=== PATIENT | female | born 1955 | race Caucasian/White ===

== ENCOUNTER → 2020-03-28 | Outpatient (CLI) | payer OTHER ==
[~2020-03-28] MED LIST: ASPIR 8181 MG PO; ATENOLOL25 MG PO; ATORVASTATIN CA20 MG PO; CLOPIDOGREL75 MG PO; IRBESARTAN150 MG PO; ISOSORBIDE MONO30 MG PO; NITROGLYCERIN0.4 MG SL; PRIMIDONE1 GM PO; PROAIR HFA INH8.5 GM INH
--- NOTE | 2020-03-28 12:44 | Diagnostic Imaging Report ---
TECHNIQUE: Magnetic resonance imaging of the RIGHT ANKLE was performed WITHOUT injected contrast. COMPARISON: None available. HISTORY: Right ankle pain, fall FINDINGS: LIGAMENTS: Medial Complex: Deltoid intact. Lateral Complex: Tibiofibular ligaments intact. High-grade tear of the insertion of the ATFL with cortical avulsion of the talus. The CFL ligament is poorly visualized. TENDONS: Medial: Posterior tibial and flexor tendons intact. Lateral: Peroneal tendons intact. Anterior: Anterior tibial and extensor tendons intact. Achilles: Achilles tendon intact. BONES: Osseous contusion of the medial malleolus and talus. No acute fracture or osteonecrosis. JOINTS: Cartilage: Osteochondral lesion of the lateral tibial plafond without defect. Other: Ankle joint effusion. SOFT TISSUES: Otherwise, unremarkable. IMPRESSION: Ankle inversion injury with high-grade tear of the insertion of the ATFL with cortical avulsion of the talus. Medial malleolus and medial talus contusion. Subchondral lesion of the medial talar dome. No unstable fragment. Signed by: Dr. Qamar Stockton M.D. on 03/28/2020 12:41 PM
== END ==
LOC: MRI 10:48
PROVIDERS: ATTEND Podiatrist Foot & Ankle Surgery
DX: S93.431S Sprain of tibiofibular ligament of right ankle, sequela (principal)

== ENCOUNTER → 2020-04-05 | Day surgery (SDC) | payer OTHER ==
[2020-04-01 12:22] LABS: BASOPHILS # (AUTO) 0.1 (0.0-0.1); BASOPHILS % 0.5 % (0.0-1.0); EOSINOPHILS # (AUTO) 0.5 (0.0-0.4); EOSINOPHILS % 4.9 % (0.0-6.0); HEMATOCRIT 38.3 % (34.2-44.1); HEMOGLOBIN 11.9 g/dL (12.0-16.0); LYMPHOCYTES # (AUTO) 1.8 (1.0-3.2); LYMPHOCYTES % 18.3 % (18.0-39.1); MEAN CORPUSCULAR HEMOGLOBIN 28.1 pg (28-32); MEAN CORPUSCULAR HGB CONC 31.1 g/dL (31-35); MEAN CORPUSCULAR VOLUME 90.3 fL (81-99); MONOCYTES # (AUTO) 0.6 (0.2-0.8); NEUTROPHILS # (AUTO) 6.9 (2.1-6.9); NEUTROPHILS % 69.7 % (38.7-80.0); PLATELET COUNT 336 x10e3/uL (140-360); RED BLOOD COUNT 4.24 x10e6/uL (3.6-5.1); RED CELL DISTRIBUTION WIDTH 13.9 % (11.7-14.4)
[2020-04-01 12:52] LABS: ANION GAP 13.5 mmol/L (8-16); BLOOD UREA NITROGEN 11 mg/dL (7-26); BUN/CREATININE RATIO 13 (6-25); CALCIUM 9.7 mg/dL (8.4-10.2); CARBON DIOXIDE 22 mmol/L (22-29); CHLORIDE 107 mmol/L (98-107); CREATININE, SERUM 0.87 mg/dL (0.57-1.11); EST GLOMERULAR FILTRATION RATE > 60 ML/MIN (60-); GLUCOSE 152 mg/dL (74-118); POTASSIUM 4.5 mmol/L (3.5-5.1); SODIUM 138 mmol/L (136-145)
--- NOTE | 2020-04-01 14:13 | Diagnostic Imaging Report ---
X-ray chest PA and lateral Comparison: None History: Preop Findings: Central airways unremarkable. Cardiomediastinal silhouettes unremarkable. No pleural effusion. No pneumothorax. Unremarkable lung galvan. Visualized skeletal structures and upper abdomen unremarkable. Impression: No significant cardiopulmonary disease. Signed by: Onesimo Gant MD on 04/01/2020 2:10 PM
[~2020-04-05] MED LIST changes: +ACETAMINOPHEN 1000 MG/100 ML 100 ML IV ONE; +BUPIVACAINE HCL 0.5% INJ 30 ML VIAL INJ ONE; +CEFAZOLIN SOD 1 GM/NS 50ML 50 ML IV ONE; +CYCLOBENZAPRINE5 MG PO; +DEXAMETHASONE SOD PHOS 10 MG/1 ML VIAL ONE; +DEXAMETHASONE SOD PHOS INJ 4 MG/ML VIAL ONE; +FENTANYL CITRATE/PF 100MCG/2 ML INJ ONE; +KETOROLAC TROMETHAMINE 30 MG/ML VIAL ONE; +LIDOCAINE HCL 2% LOCAL INJ 5 ML SDV VIAL INJ ONE; +MIDAZOLAM HCL 2 MG/2 ML VIAL ONE; +ONDANSETRON HCL INJ 2MG/ML 2ML 2 MG/ML VIAL ONE; +PROPOFOL IV EMULSION 10 MG/ML 20 ML VIAL ONE; +SEVOFLURANE INHAL SOLN 250 ML PEN BTL ONE; +TYLENOL WITH C1 EACH PO
--- NOTE | 2020-04-05 08:27 | Operative Report ---
DATE OF PROCEDURE: 04/05/2020 SURGEON: Andrew Zuniga DPM PREOPERATIVE DIAGNOSIS: Right calcaneofibular ligament rupture, right anterior talofibular ligament rupture, right talar dome lesion. POSTOPERATIVE DIAGNOSES: Right calcaneofibular ligament rupture, right anterior talofibular ligament rupture, right talar dome lesion. PROCEDURES: 1. Lateral ankle ligament reconstruction with Brostrom procedure. 2. Repair of osteochondral defect, right. SURGEON: Asia Lofton DPM (Charley) JAVA ENGINEER: Andrew Zuniga DPM. ANESTHESIA: General with a postoperative block consisting of 15 mL 0.5% Marcaine plain mixed with 1 mL of dexamethasone phosphate. HEMOSTASIS: Pneumatic thigh tourniquet set at 350 mmHg for a total time of approximately 35 minutes. MATERIALS: One G2 Mitek bone anchor, 0 Ethibond, 3-0 Vicryl, 4-0 nylon. ESTIMATED BLOOD LOSS: Less than 10 mL. PATHOLOGY: None. PROCEDURE NOTE: The patient was seen in the preoperative waiting room. The correct procedure and site were identified. The patient was brought to the operating room and placed on the operating table in the supine position. General anesthesia was initiated. At this time, a well-padded pneumatic tourniquet was placed about the patient's right thigh. The right foot, ankle, and leg were scrubbed, prepped, and draped in the usual aseptic manner. The right foot, ankle, and leg was exsanguinated with an Esmarch bandage and the pneumatic thigh tourniquet was inflated to 350 mmHg for a total time of approximately 35 minutes. Attention was directed to the anterior lateral aspect of the patient's right ankle where a J type incision was performed starting at the anterior aspect of the distal fibula and wrapping inferiorly around the inferior aspect of the fibula. The incision was carried through subcutaneous tissue them from deep underlying structures. All vital and neurovascular structures were identified, retracted medially and laterally and all bleeders were cauterized or ligated as deemed necessary. The dissection was carried through the level to the ankle joint capsule, where there was noted to be attenuation of the anterior talofibular ligament. The calcaneofibular ligament as well appeared to be attenuated. A GI incision was made over the lateral aspect of the patient's anterior ankle capsule where a large hankins of dried hematoma formation was present. Upon exploration of the lateral aspect of talar dome a superficial osteochondral defect was noted to the anterolateral aspect of the talar dome. Utilizing a 0.045 K-wire, a subchondral drilling was performed. The wound was then copiously irrigated with sterile saline. Next, utilizing a G2 bone anchor per manufacture protocol was placed to the distal aspect of the fibula and confirmed via intraoperative fluoroscopy. Utilizing the sutures, the anterior talofibular ligament along with the ankle joint capsule was reapproximated to anatomic alignment. This was then further reinforced with a Brostrom-Newberry modification with ehery-iwdy-havy sutures with 0 Ethibond. The wound was then copiously irrigated with sterile saline. The subcutaneous tissue was reapproximated with simple interrupted sutures with 3-0 Vicryl, and the skin was reapproximated with simple interrupted sutures with 4-0 nylon. The incision site was then dressed with Adaptic, 4x4s, Kerlix followed by an application of a posterior splint with a 4-inch Duong wrap, and a 6-inch Duong wrap. The patient tolerated the procedure and anesthesia well. The patient was transferred to the postoperative recovery room with vital signs stable and vascular status intact. The patient was monitored there for a short period of time before being sent home with the final written and oral instructions. 1. Keep the dressing clean, dry, intact. 2. The patient is to remain nonweightbearing to the right lower extremity to avoid any ambulation until being seen in the office. 3. The patient was given the office number and instructed to contact us if any problems arise. LANEY Banuelos/SAMIR /[id number]
[2020-04-05 08:40] VITALS: BP 128/79
== END | disposition home or self-care (01) ==
LOC: OR 05:03
PROVIDERS: ATTEND Podiatrist Foot & Ankle Surgery
DX: S93.491A Sprain of other ligament of right ankle, initial encounter (principal); S93.411A Sprain of calcaneofibular ligament of right ankle, initial encounter; M93.271 Osteochondritis dissecans, right ankle and joints of right foot; G47.33 Obstructive sleep apnea (adult) (pediatric); J45.909 Unspecified asthma, uncomplicated; R73.03 Prediabetes; I25.10 Atherosclerotic heart disease of native coronary artery without angina pectoris; I25.2 Old myocardial infarction; X58.XXXA Exposure to other specified factors, initial encounter; Z01.812 Encounter for preprocedural laboratory examination; Z01.818 Encounter for other preprocedural examination; Z11.59 Encounter for screening for other viral diseases; Z88.8 Allergy status to other drugs, medicaments and biological substances; Z79.02 Long term (current) use of antithrombotics/antiplatelets; Z79.82 Long term (current) use of aspirin; Z86.73 Personal history of transient ischemic attack (TIA), and cerebral infarction without residual deficits; Z95.5 Presence of coronary angioplasty implant and graft
CPT/HCPCS: 27695; 28446; 36415; 71046; 80048; 85025; J0131; J0690; J1100 ×2; J1885; J2001; J2250; J2405; J2704; J3010; U0002; C1713

== ENCOUNTER 2020-05-04 13:46 | Emergency (ER) | payer OTHER ==
[~2020-05-04] VITALS: Ht 167.6 cm; Wt 113.4 kg
[~2020-05-04 13:46] MED LIST changes: -ACETAMINOPHEN 1000 MG/100 ML 100 ML IV ONE; -BUPIVACAINE HCL 0.5% INJ 30 ML VIAL INJ ONE; -CEFAZOLIN SOD 1 GM/NS 50ML 50 ML IV ONE; -CYCLOBENZAPRINE5 MG PO; -DEXAMETHASONE SOD PHOS 10 MG/1 ML VIAL ONE; -DEXAMETHASONE SOD PHOS INJ 4 MG/ML VIAL ONE; -FENTANYL CITRATE/PF 100MCG/2 ML INJ ONE; -KETOROLAC TROMETHAMINE 30 MG/ML VIAL ONE; -LIDOCAINE HCL 2% LOCAL INJ 5 ML SDV VIAL INJ ONE; -MIDAZOLAM HCL 2 MG/2 ML VIAL ONE; -ONDANSETRON HCL INJ 2MG/ML 2ML 2 MG/ML VIAL ONE; -PROPOFOL IV EMULSION 10 MG/ML 20 ML VIAL ONE; -SEVOFLURANE INHAL SOLN 250 ML PEN BTL ONE; -TYLENOL WITH C1 EACH PO
[2020-05-04] MEDS ORDERED: MORPHINE SULFATE 5 MG/ML VIAL IM ONE (14:15)
[2020-05-04] MEDS ORDERED: MORPHINE SULFATE INJ 4 MG/ML INJ 1ML IM ONE (14:21)
[2020-05-04] MEDS ORDERED: MORPHINE SULFATE INJ 4 MG/ML INJ 1ML ONE (14:23)
--- NOTE | 2020-05-04 15:28 | Diagnostic Imaging Report ---
EXAMINATION: HAND 3 VIEW RT - [facility], FOREARM 2 VIEW RT - [facility] INDICATION: Fall COMPARISON: None FINDINGS: No acute fracture or dislocation. Alignment is anatomic. The soft tissues appear unremarkable. Moderate degenerative changes of the first CMC joint with joint space narrowing and osteophyte formation. IMPRESSION: No acute osseous injury. Moderate first CMC joint degenerative changes. Signed by: Tyrone Maxwell MD on 05/04/2020 3:25 PM
--- NOTE | 2020-05-04 15:35 | Diagnostic Imaging Report ---
EXAMINATION: TIB/FIB 2VW RT - [facility], FOOT 2VIEW RT - [facility] INDICATION: Fall COMPARISON: None FINDINGS: Right tibia/fibula: No acute fracture or dislocation. Alignment is anatomic. No ankle joint effusion. Soft tissues appear unremarkable. No knee joint effusion. Right foot: No acute fracture or dislocation. Metallic anchor at the distal fibula from prior surgical repair. Alignment is anatomic. Small plantar calcaneal spur. Soft tissues appear unremarkable. IMPRESSION: No acute osseous injury of the right tibia/fibula or right foot. Signed by: Tyrone Maxwell MD on 05/04/2020 3:31 PM
--- NOTE | 2020-05-04 15:37 | Diagnostic Imaging Report ---
EXAMINATION: L SPINE 4 OR MORE VIEWS - [facility] INDICATION: Fall COMPARISON: None FINDINGS: AP, lateral and oblique images of the lumbar spine demonstrate fracture. Vertebral body heights are well-maintained. Alignment is anatomic. Minimal degenerative changes with small multilevel osteophyte formation. Oblique images demonstrate no evidence of spondylolysis. Status post cholecystectomy. IMPRESSION: No acute osseous injury of the lumbar spine. Minimal multilevel degenerative changes. Signed by: Tyrone aMxwell MD on 05/04/2020 3:34 PM
--- NOTE | 2020-05-04 15:45 | Emergency Department Note ---
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 SHE HAS TENDON REPAIR ON RIGHT ANKLE 4 WEEKS AGO AND IS USING CRUTCHES. AT APPROX 1130 SHE WENT TO BATHROOM WITH CRUTCHES, TRIP AND FELL OVER THE TOILET AND INTO THE SHOWER. PT. C/O PAIN TO LOWER BACK, RIGHT FOREARM AND RIGHT KNEE . Historian: Patient, Significant Other Arrival Mode: Car Onset (how long ago): day(s) (1) Location: BACK/LEG/ARM Radiation: Denies non-radiation, Denies back, Denies neck, Denies extremity, Denies abdomen, Denies periumbilical, Denies flank, Denies proximal, Denies distal, Denies other Severity: moderate Onset quality: sudden Duration (how long): day(s) (1) Timing of current episode: constant Progression: worsening Chronicity: new Context: Denies recent illness, Denies recent surgery, Denies recent immobilization, Denies recent travel, Denies trauma/injury, Denies new medications, Denies hx of DVT/PE, Denies non-compliance w/ medications, Denies other Relieving factors: none Exacerbating factors: none Associated symptoms: Reports denies other symptoms Past Medical/Family History Physician Review I have reviewed the patient's past medical and family history. Any updates have been documented here. Past Medical History Recent Fever: No Clinical Suspicion of Infectio: No New/Unexplained Change in Ment: No Past Medical History: Hypertension, ND, CVA, Asthma, Hyperlipedemia Past Surgical History: Hysterectomy Other Surgery: RIGHT KNEE SCOPE CARDIAC STENT RIGHT ANKLE TENDON REPAIR Social History Smoking Cessation: Never Smoker Alcohol Use: None Any Illegal Drug Use: No Physically hurt or threatened: No Other Any Pre-Existing Lines (PICC,: No Review of Systems Review of Systems Constitutional: Reports no symptoms EENTM: Reports no symptoms Cardiovascular: Reports no symptoms Respiratory: Reports no symptoms Gastrointestinal: Reports no symptoms Genitourinary: Reports no symptoms Musculoskeletal: Reports as per HPI Integumentary: Reports no symptoms Neurological: Reports no symptoms Psychological: Reports no symptoms Endocrine: Reports no symptoms Hematological/Lymphatic: Reports no symptoms Physical Exam Related Data Allergies: Coded Allergies: metoprolol (Verified Allergy, Unknown, HALLUCINATIONS, 03/30/20) polyethylene glycol (Verified Allergy, Unknown, SEVERE VOMITING, 03/30/20) polyethylene glycol 3350 (Verified Allergy, Unknown, SEVERE VOMITING, 03/30/20) potassium chloride (Verified Allergy, Unknown, SEVERE VOMITING, 03/30/20) sodium (Verified Allergy, Unknown, SEVERE VOMITING, 03/30/20) sodium bicarbonate (Verified Allergy, Unknown, SEVERE VOMITING, 03/30/20) sodium chloride (Verified Allergy, Unknown, SEVERE VOMITING, 03/30/20) sodium sulfate (Verified Allergy, Unknown, SEVERE VOMITING, 03/30/20) Triage Vital Signs Vital Signs Date Time Temp Pulse Resp B/P (MAP) Pulse Ox O2 Delivery O2 Flow Rate FiO2 05/04/20 14:04 97.2 65 16 139/72 99 Room Air Vital signs reviewed: Yes Physical Exam CONSTITUTIONAL Constitutional: Present well-developed, Present well-nourished HENT HENT: Present normocephalic, Present atraumatic, Present oropharynx clear/moist, Present nose normal HENT L/R: Present left ext ear normal, Present right ext ear normal EYES Eyes: Reports PERRL, Reports conjunctivae normal NECK Neck: Present ROM normal PULMONARY Pulmonary: Present effort normal, Present breath sounds normal CARDIOVASCULAR Cardiovascular: Present regular rhythm, Present heart sounds normal, Present capillary refill normal, Present normal rate GASTROINTESTINAL Abdominal: Present soft, Present nontender, Present bowel sounds normal GENITOURINARY Genitourinary: Present exam deferred SKIN Skin: Present warm, Present dry MUSCULOSKELETAL Musculoskeletal: Present ROM normal, Present tenderness (BACK/RIGHT LEG/RIGHT ARM) NEUROLOGICAL Neurological: Present alert, Present oriented x 3, Present no gross motor or sensory deficits PSYCHOLOGICAL Psychological: Present mood/affect normal, Present judgement normal Results Imaging Imaging results reviewed: Yes Assessment & Plan Medical Decision Making MDM FRACTURE CONTUSION Reassessment Reassessment SAME Assessment & Plan Final Impression: (1) Back sprain (2) Contusion of right leg (3) Contusion of right arm (4) Acute pain due to trauma Depart Disposition: HOME, SELF-CARE Last Vital Signs Date Time Temp Pulse Resp B/P (MAP) Pulse Ox O2 Delivery O2 Flow Rate FiO2 05/04/20 14:04 97.2 65 16 139/72 99 Room Air Home Meds Reported Medications Nitroglycerin (NITROGLYCERIN) 0.4 Mg Tab.subl, 0.4 MG SL Q5MIN PRN for CHEST PAIN, TAB 03/30/20 Primidone (PRIMIDONE) 1 Gm Powder, 100 MG PO HS 03/30/20 Albuterol Sulf* (PROAIR HFA INHALER*) 8.5 Gm Inh, INH PRN 03/30/20 Atorvastatin Calcium (ATORVASTATIN CALCIUM) 20 Mg Tablet, 40 MG PO HS, #30 TAB 03/30/20 Irbesartan (IRBESARTAN) 150 Mg Tablet, 75 MG PO DAILY, #30 TAB 03/30/20 Clopidogrel Bisulfate (CLOPIDOGREL) 75 Mg Tablet, 75 MG PO DAILY, #30 TAB 03/30/20 Aspirin (ASPIR 81) 81 Mg Tablet.dr, 81 MG PO DAILY 03/30/20 Atenolol (ATENOLOL) 25 Mg Tablet, 25 MG PO DAILY 03/30/20 Isosorbide Mononitrate (ISOSORBIDE MONONITRATE ER) 30 Mg Tab.er.24h, 30 MG PO DAILY, #30 TAB 03/30/20 Medications in the ED Morphine Sulfate 4 mg ONCE ONCE IM Last administered on 05/04/20at 14:21; Admin Dose 4 MG; Start 05/04/20 at 14:15; Stop 05/04/20 at 14:24; Status DC Morphine Sulfate 4 mg STK-MED ONCE .ROUTE ; Start 05/04/20 at 14:23; Stop 05/04/20 at 14:21; Status DC Morphine Sulfate 4 mg ONCE ONCE IM ; Start 05/04/20 at 14:21; Stop 05/04/20 at 14:24; Status DC OBINNA MARCUS MD May 04, 2020 15:45
--- NOTE | 2020-05-04 16:36 | Diagnostic Imaging Report ---
HUMERUS 2VIEW RT -[facility] - 4 views HISTORY: Pain COMPARISON: None available. FINDINGS: Bones: No acute displaced fracture. Osseous alignment is within normal limits. Joints: No malalignment. Soft tissues: The soft tissues appear unremarkable. IMPRESSION: No acute radiographic abnormality. Signed by: Dr. Guero Elias MD on 05/04/2020 4:33 PM
--- NOTE | 2020-05-04 16:36 | Diagnostic Imaging Report ---
FEMUR 2 VIEW RT - [facility] - 3 radiographs HISTORY: Pain COMPARISON: None available. FINDINGS: Bones: No acute displaced fracture. Osseous alignment is within normal limits. Joints: No malalignment. Soft tissues: The soft tissues appear unremarkable. IMPRESSION: No acute radiographic abnormality. Signed by: Dr. Guero Elias MD on 05/04/2020 4:32 PM
--- NOTE | 2020-05-04 16:37 | Diagnostic Imaging Report ---
KNEE 3VW LT - [facility] - 3 views HISTORY: Pain COMPARISON: None available. FINDINGS: Bones: No acute displaced fracture. Osseous alignment is within normal limits. Joints: Medial compartment joint space narrowing and marginal osteophytosis. Mild to moderate suprapatellar joint effusion. Soft tissues: The soft tissues appear unremarkable. IMPRESSION: No acute radiographic abnormality. Degenerative changes of the medial compartment. Signed by: Dr. Guero Elias MD on 05/04/2020 4:34 PM
[2020-05-04] MEDS ORDERED: TYLENOL WITH C1 EACH PO (16:48)
[2020-05-04] MEDS ORDERED: CYCLOBENZAPRINE5 MG PO (16:48)
[2020-05-04 16:52] VITALS: BP 140/80
== END 2020-05-04 16:56 | disposition home or self-care (01) ==
LOC: FSED 13:49
DX: S33.5XXA Sprain of ligaments of lumbar spine, initial encounter (principal); S50.11XA Contusion of right forearm, initial encounter; S80.01XA Contusion of right knee, initial encounter; W01.0XXA Fall on same level from slipping, tripping and stumbling without subsequent striking against object, initial encounter; Y92.002 Bathroom of unspecified non-institutional (private) residence as the place of occurrence of the external cause; I10 Essential (primary) hypertension; E78.5 Hyperlipidemia, unspecified; I25.2 Old myocardial infarction; Z86.73 Personal history of transient ischemic attack (TIA), and cerebral infarction without residual deficits; Z95.5 Presence of coronary angioplasty implant and graft
CPT/HCPCS: 72110; 73060; 73090; 73130; 73552; 73562; 73590; 73620; 99283; J2270